=== PATIENT | female | born 1945 | race Caucasian/White ===

== ENCOUNTER → 2016-09-25 | Outpatient (CLI) | payer OTHER ==
[~2016-09-25] MED LIST: ASCA500 PO; CHOL20009 PO; CLTP PO; FSM70 PO; MAGN250T22 PO; MULT-506 PO
[2016-09-25 17:47] LABS: BLOOD UREA NITROGEN 21 mg/dl (7-18); BUN/CREATININE RATIO 25.3 (10-20); CALCIUM 9.1 mg/dl (8.5-10.1); CARBON DIOXIDE 33 mmol/L (21-32); CHLORIDE 103 mmol/L (98-107); CREATININE 0.84 mg/dl (0.60-1.20); GLUCOSE 94 mg/dl (70-99); POTASSIUM 3.6 mmol/L (3.5-5.1); SODIUM 141 mmol/L (136-145)
== END | disposition home or self-care (01) ==
LOC: C.LABPVFM 13:39
PROVIDERS: ATTEND Internal Medicine Endocrinology, Diabetes & Metabolism
DX: E83.50 Unspecified disorder of calcium metabolism (principal)

== ENCOUNTER → 2017-01-31 | Outpatient (CLI) | payer OTHER ==
--- NOTE | 2017-01-31 10:10 | DIAGNOSTIC IMAGING REPORT ---
L-SPINE MIN 4 VIEWS ROUTINE, SACRUM COCCYX MIN 2 VIEWS CLINICAL HISTORY: LOW BACK PAIN//RIGHT SIDED SCIATICA COMPARISON STUDY: None. FINDINGS: Mild disc space narrowing at L4-5. Moderate disc space narrowing at L5-S1. Mild facet degenerative changes within the lower lumbar spine. 4 mm of anterolisthesis of L5 on S1. Straightening of the lumbar spine. No fractures within the lumbar spine. The sacrum appears intact. Mild degenerative changes within the bilateral sacroiliac joints. Presacral soft tissues are unremarkable. IMPRESSION: 1. No fractures within the lumbar spine, sacrum, or coccyx. 2. Mild to moderate scattered changes within the lower lumbar spine as described above. 3. Grade I anterolisthesis of L5 on S1. Electronically signed by: Chalo Boyd M.D. 01/31/2017 10:08 AM Dictated Date/Time: 01/31/2017 10:04 AM
== END | disposition home or self-care (01) ==
LOC: C.RADPV 09:27
PROVIDERS: ATTEND Neuromusculoskeletal Medicine & OMM
DX: M54.41 Lumbago with sciatica, right side (principal); M43.17 Spondylolisthesis, lumbosacral region

== ENCOUNTER → 2017-05-07 | Outpatient (CLI) | payer OTHER ==
--- NOTE | 2017-05-07 16:08 | MAMMOGRAPHY REPORT ---
BILATERAL DIGITAL SCREENING MAMMOGRAM WITH CAD: 05/07/2017 CLINICAL HISTORY: Routine screening. Patient has no complaints. TECHNIQUE: Bilateral CC and MLO views were obtained. Current study was also evaluated with a Comput er Aided Detection (CAD) system. COMPARISON: Comparison is made to exams dated: 04/30/2016 mammogram, 04/28/2015 mammogram, 02/23/2014 m ammogram, 02/17/2013 mammogram, 02/14/2012 mammogram, and 02/12/2011 mammogram - [facility] ter. BREAST COMPOSITION: There are scattered areas of fibroglandular density in both breasts. FINDINGS: The parenchymal pattern is similar to prior mammograms. No developing mass, architectural distortion or cluster of suspicious microcalcifications is seen in either breast. IMPRESSION: ACR BI-RADS CATEGORY 2: BENIGN There is no mammographic evidence of malignancy. A 1 year screening mammogram is recommended. The pa tient will receive written notification of the results. Approximately 10% of breast cancers are not detected with mammography. A negative mammographic report should not delay biopsy if a clinically suggestive mass is present. Sera Garber M.D. ay/:05/07/2017 09:13:22 Transplant Nurse: Dayami VU(Nadine)([place])([place]), [facility] letter sent: Normal 1/2 BI-RADS Code: ACR BI-RADS Category 2: Benign
== END | disposition home or self-care (01) ==
LOC: C.MAMM 08:40
PROVIDERS: ATTEND Obstetrics & Gynecology
DX: Z12.31 Encounter for screening mammogram for malignant neoplasm of breast (principal)

== ENCOUNTER → 2017-07-20 | Outpatient (CLI) | payer OTHER ==
[2017-07-20 13:46] LABS: BLOOD UREA NITROGEN 22 mg/dl (7-18); BUN/CREATININE RATIO 28.4 (10-20); CARBON DIOXIDE 30 mmol/L (21-32); CHLORIDE 104 mmol/L (98-107); CREATININE 0.78 mg/dl (0.60-1.20); GLUCOSE 104 mg/dl (70-99); POTASSIUM 4.2 mmol/L (3.5-5.1); SODIUM 140 mmol/L (136-145)
[2017-07-20 13:51] LABS: CHOLESTEROL 215 mg/dl (0-200); CHOLESTEROL/HDL RATIO 3.1; HDL CHOLESTEROL 70 mg/dl; LDL CHOLESTEROL CALCULATED 131 mg/dl; TRIGLYCERIDES 68 mg/dl (0-150); VERY LOW DENSITY LIPOPROT CALC 14 mg/dl
== END | disposition home or self-care (01) ==
LOC: C.LABPVFM 08:16
PROVIDERS: ATTEND Nurse Practitioner
DX: Z13.220 Encounter for screening for lipoid disorders (principal); Z13.1 Encounter for screening for diabetes mellitus; E83.50 Unspecified disorder of calcium metabolism

== ENCOUNTER → 2017-07-25 | Outpatient (CLI) | payer OTHER ==
[2017-07-25 14:18] LABS: CALCIUM URINE 9.3 mg/dl
== END | disposition home or self-care (01) ==
LOC: C.LABPVFM 10:43
PROVIDERS: ATTEND Nurse Practitioner
DX: E83.50 Unspecified disorder of calcium metabolism (principal)

== ENCOUNTER → 2017-08-26 | Outpatient (CLI) | payer OTHER | END | disposition home or self-care (01) | LOC: C.MAMM 13:21 | PROVIDERS: ATTEND Nurse Practitioner | DX: Z00.00 Encounter for general adult medical examination without abnormal findings (principal); M81.0 Age-related osteoporosis without current pathological fracture; E55.9 Vitamin D deficiency, unspecified ==

== ENCOUNTER → 2017-09-04 | Outpatient (CLI) | payer OTHER ==
[2017-09-04 15:02] LABS: CALCIUM 9.6 mg/dl (8.5-10.1)
== END | disposition home or self-care (01) ==
LOC: C.LAB1850 13:33
PROVIDERS: ATTEND Internal Medicine Endocrinology, Diabetes & Metabolism
DX: E55.9 Vitamin D deficiency, unspecified (principal); M81.0 Age-related osteoporosis without current pathological fracture

== ENCOUNTER → 2017-09-19 | Outpatient (CLI) | payer OTHER ==
--- NOTE | 2017-09-19 13:43 | DIAGNOSTIC IMAGING REPORT ---
RIGHT FOOT 3 VIEWS CLINICAL HISTORY: Third toe injury. FINDINGS: 3 views of the right foot are obtained. No prior studies are available for comparison at the time of dictation. The skeletal structures are osteopenic. There is a nondistracted spiral fracture through the midshaft of the third proximal phalanx. Mild overlying soft tissue edema is noted. No additional fracture is seen. Mild arthritic change is present the first metatarsophalangeal joint. IMPRESSION: There is a nondistracted spiral fracture through the midshaft of the third proximal phalanx. Electronically signed by: Jeovanny Bob M.D. 09/19/2017 1:42 PM Dictated Date/Time: 09/19/2017 1:41 PM
== END | disposition home or self-care (01) ==
LOC: C.RADPV 13:20
PROVIDERS: ATTEND Nurse Practitioner Family
DX: S92.514A Nondisplaced fracture of proximal phalanx of right lesser toe(s), initial encounter for closed fracture (principal); X58.XXXA Exposure to other specified factors, initial encounter